=== PATIENT | male | born 1970 | race Caucasian/White ===

== ENCOUNTER → 2020-05-22 11:18 | Outpatient (BNVA) | payer OTHER, SELFPAY | PROVIDERS: Visit Provider Orthopaedic Surgery | DX: M25.562 Pain in left knee (principal); M25.561 Pain in right knee | CPT/HCPCS: 20610; 99212; J1040 ==

== ENCOUNTER 2021-08-14 12:31 | Outpatient (REF) | payer OTHER, SELFPAY ==
--- NOTE | ~2021-08-14 | XR_ITS ---
EXAMINATION: XR knee LT 2V, XR knee RT 2V, XR knee standing BI CLINICAL INFORMATION: Knee pain. COMPARISON: Left knee MRI 03/23/2018. Bilateral knee radiographs 02/14/2018. Bilateral knee radiographs 01/15/2017. TECHNIQUE: Bilateral lateral and sunrise radiographs and bilateral AP standing radiographs of the knees. FINDINGS: Left knee: Medial compartment: Marked joint space narrowing with moderate subchondral sclerosis and osteophytosis. The degree of osteophytosis of the medial compartment is increased compared with 02/14/2018. Lateral compartment: Mild joint space narrowing. Moderate femoral condylar osteophytosis. Patellofemoral compartment: Marked patellofemoral osteophytosis and prominent osteophyte of the superior pole of the patella is present in his partially discontiguous with irregular and sclerotic margins unchanged compared with 02/14/2018. The lateral view demonstrates a small suprapatellar bursal effusion. Right knee: Medial compartment: Moderate-marked joint space narrowing and moderate femoral condyle osteophytosis. Lateral compartment: Mild joint space narrowing and mild subchondral sclerosis. Patellofemoral compartment: Marked lateral and mild medial facet joint space narrowing. Moderate-marked osteophytosis is present with findings most pronounced along the superior pole the patella increased compared with 01/15/2017 there No gross joint effusion. XR/XR knee RT 2V IMPRESSION: Left knee: Tricompartmental osteoarthritis. Findings are most pronounced in the patellofemoral compartment followed by the medial compartment. Medial compartment osteophytosis is is mildly progressed compared with 02/14/2018. Right knee: Tricompartmental osteoarthritis. Patellofemoral osteophytosis is increased compared with 01/15/2017.
--- NOTE | ~2021-08-14 | XR_ITS ---
EXAMINATION: XR knee LT 2V, XR knee RT 2V, XR knee standing BI CLINICAL INFORMATION: Knee pain. COMPARISON: Left knee MRI 03/23/2018. Bilateral knee radiographs 02/14/2018. Bilateral knee radiographs 01/15/2017. TECHNIQUE: Bilateral lateral and sunrise radiographs and bilateral AP standing radiographs of the knees. FINDINGS: Left knee: Medial compartment: Marked joint space narrowing with moderate subchondral sclerosis and osteophytosis. The degree of osteophytosis of the medial compartment is increased compared with 02/14/2018. Lateral compartment: Mild joint space narrowing. Moderate femoral condylar osteophytosis. Patellofemoral compartment: Marked patellofemoral osteophytosis and prominent osteophyte of the superior pole of the patella is present in his partially discontiguous with irregular and sclerotic margins unchanged compared with 02/14/2018. The lateral view demonstrates a small suprapatellar bursal effusion. Right knee: Medial compartment: Moderate-marked joint space narrowing and moderate femoral condyle osteophytosis. Lateral compartment: Mild joint space narrowing and mild subchondral sclerosis. Patellofemoral compartment: Marked lateral and mild medial facet joint space narrowing. Moderate-marked osteophytosis is present with findings most pronounced along the superior pole the patella increased compared with 01/15/2017 there No gross joint effusion. XR/XR knee standing BI IMPRESSION: Left knee: Tricompartmental osteoarthritis. Findings are most pronounced in the patellofemoral compartment followed by the medial compartment. Medial compartment osteophytosis is is mildly progressed compared with 02/14/2018. Right knee: Tricompartmental osteoarthritis. Patellofemoral osteophytosis is increased compared with 01/15/2017.
--- NOTE | ~2021-08-14 | XR_ITS ---
EXAMINATION: XR knee LT 2V, XR knee RT 2V, XR knee standing BI CLINICAL INFORMATION: Knee pain. COMPARISON: Left knee MRI 03/23/2018. Bilateral knee radiographs 02/14/2018. Bilateral knee radiographs 01/15/2017. TECHNIQUE: Bilateral lateral and sunrise radiographs and bilateral AP standing radiographs of the knees. FINDINGS: Left knee: Medial compartment: Marked joint space narrowing with moderate subchondral sclerosis and osteophytosis. The degree of osteophytosis of the medial compartment is increased compared with 02/14/2018. Lateral compartment: Mild joint space narrowing. Moderate femoral condylar osteophytosis. Patellofemoral compartment: Marked patellofemoral osteophytosis and prominent osteophyte of the superior pole of the patella is present in his partially discontiguous with irregular and sclerotic margins unchanged compared with 02/14/2018. The lateral view demonstrates a small suprapatellar bursal effusion. Right knee: Medial compartment: Moderate-marked joint space narrowing and moderate femoral condyle osteophytosis. Lateral compartment: Mild joint space narrowing and mild subchondral sclerosis. Patellofemoral compartment: Marked lateral and mild medial facet joint space narrowing. Moderate-marked osteophytosis is present with findings most pronounced along the superior pole the patella increased compared with 01/15/2017 there No gross joint effusion. XR/XR knee LT 2V IMPRESSION: Left knee: Tricompartmental osteoarthritis. Findings are most pronounced in the patellofemoral compartment followed by the medial compartment. Medial compartment osteophytosis is is mildly progressed compared with 02/14/2018. Right knee: Tricompartmental osteoarthritis. Patellofemoral osteophytosis is increased compared with 01/15/2017.
== END 2021-08-14 12:32 | disposition home or self-care (01) ==
LOC: HO.HOSX 12:31
PROVIDERS: Visit Provider Orthopaedic Surgery
DX: M17.0 Bilateral primary osteoarthritis of knee (principal)
CPT/HCPCS: 20610; 73560; 73565; 99212; J1100

== ENCOUNTER → 2022-07-23 12:45 | Outpatient (BNVA) | payer OTHER, SELFPAY | PROVIDERS: PCP Internal Medicine; Visit Provider Orthopaedic Surgery | DX: M17.0 Bilateral primary osteoarthritis of knee (principal) | CPT/HCPCS: 99212 ==

== ENCOUNTER → 2022-08-17 10:39 | Outpatient (BNVA) | payer OTHER, SELFPAY | PROVIDERS: PCP Internal Medicine; Visit Provider Orthopaedic Surgery | DX: M17.0 Bilateral primary osteoarthritis of knee (principal) | CPT/HCPCS: 20610; 99212; J7323 ==

== ENCOUNTER → 2022-08-24 13:19 | Outpatient (BNVA) | payer OTHER, SELFPAY | PROVIDERS: PCP Internal Medicine; Visit Provider Orthopaedic Surgery | DX: M17.0 Bilateral primary osteoarthritis of knee (principal) | CPT/HCPCS: 20610; 99212; J7323 ==

== ENCOUNTER → 2022-08-31 13:11 | Outpatient (BNVA) | payer OTHER, SELFPAY | PROVIDERS: PCP Internal Medicine; Visit Provider Orthopaedic Surgery | DX: M17.0 Bilateral primary osteoarthritis of knee (principal) | CPT/HCPCS: 20610; 99212; J7323 ==